=== PATIENT | female | born 1950 | race Two or more races ===

== ENCOUNTER 2017-09-03 11:30 | Outpatient (AMBR) | payer MEDICARE, MEDICAID, SELFPAY ==
--- NOTE | 2017-08-11 10:48 | PTNOTE_ITS ---
PT OP Initial Eval Patient Information Visit Reasons: right shoulder pain Medical Diagnosis: M25.511 M19.011 Treatment Dx #1: R shoulder pain Start of Care: 08/11/17 Date of Onset: 8 weeks ago Initial Assessment Subjective Pt is 67 yr old female who c/o R shoulder pain that started about 1 yr ago but worsened over the past 8 weeks. She reports pain with certain movements such as reaching behind her back. She points to the scapula as site of pain. She does HH chores with her hand below shoulder height to avoid pain. She is independent with all ADL's with occasional sharp pain if she moves wrong. She works seasonally [employer]. PLOF: pt had full use of shoulder with work and HH chore duties without pain. 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 negative TTP: moderate over UT, supraspinatus C/S screen: positive with R SB. Limited extension ROM Assessment Pt presents with decreased R shoulder AROM, pain with resisted supraspinatus resistance and TTP over that muscle consistent with shoulder RC impingement/ tendinopathy. Pt has decreased ROM with HBB and pain around scapula. Cervical screening is positive with pain referral from C/S to R shoulder with R sidebending. Cervical extension is very limited as well consistent with OA. Eval followed by HEP with materials. Short Term and Correction Goals 1. Ind with HEP 2. Improved AROM with HBB to L3 3. Increased strength to 4/5 in all planes of motion 4. Pt will reach OH to tall cabinets x10 Treatment Plan 90 day POC in order to complete visits. Pt requires skilled therapy in order to increase strength, decrease pain and address aforementioned impairments. Rx may consist of Therex, Manual therapy, Neuromuscular re-education, Modalities as indicated-moist heat packs, ice packs, mechanical traction, estim Frequency and Duration 2x a week for 6 weeks Certification Dates: 08/11/17 to 11/09/17 Office Procedures PT Outpatient G-Codes Date of Service PT Date of Service: 08/11/17 G-Codes Changing & Maintaining Body Post Body Position Current Status G-Code: G8981: CK 40-60% Body Position Goal Status G-Code: G8982: CJ 20-40% PT Procedures PT Date of Service: 08/11/17 OP PT Eval Mod Complex 30 minutes: Yes
--- NOTE | 2017-08-18 11:55 | PTNOTE_ITS ---
PT Outpatient Daily Note Date of Service: August 18, 2017 OP Daily Note Visit Reasons: right shoulder pain Outpatient Physical Therapy Treatment Date: 08/18/17 Subjective: About the same as time of eval Objective: See F/S for therex MT: STM to R UQ with Graston x10' Assessment: Good response to manual therapy to reduce UQ pain and improved AROM into FF. Pt has trigger point in levator scap that was less TTP after manual therapy. Plan: Continue per POC Length of Time (minutes) of Treatment: 30 Minutes Office Procedures PT Outpatient G-Codes Date of Service PT Date of Service: 08/11/17 G-Codes Changing & Maintaining Body Post Body Position Current Status G-Code: G8981: CK 40-60% Body Position Goal Status G-Code: G8982: CJ 20-40% PT Procedures PT Date of Service: 08/11/17 OP PT Eval Mod Complex 30 minutes: Yes PT Procedures PT Date of Service: 08/18/17 Therapeutic Exercise 15 minutes: Yes Manual Learning Design Specialist 15 minutes: Yes
--- NOTE | 2017-08-21 15:03 | PTNOTE_ITS ---
PT Outpatient Daily Note Date of Service: August 21, 2017 OP Daily Note Visit Reasons: right shoulder pain Outpatient Physical Therapy Treatment Date: 08/21/17 Subjective: pt felt a bit sore from last visit STM but also felt better of the R side neck. Objective: see flow sheet. Assessment: palpated pt's R side neck and did not have muscle tightness but had small trigger points around the scap. pt tolerated the STM but did have some discomfort followed by pressure relief. pt felt a lot more relaxed post STM. pt had fair ROM during pulleys. no compensation nor discomfort noted during and after finger ladder as pt was able to maintain good standing posture. Plan: continue POC per PT. Length of Time (minutes) of Treatment: 30 Minutes Office Procedures PT Outpatient G-Codes Date of Service PT Date of Service: 08/11/17 G-Codes Changing & Maintaining Body Post Body Position Current Status G-Code: G8981: CK 40-60% Body Position Goal Status G-Code: G8982: CJ 20-40% PT Procedures PT Date of Service: 08/11/17 OP PT Eval Mod Complex 30 minutes: Yes PT Procedures PT Date of Service: 08/21/17 Therapeutic Exercise 15 minutes: Yes Manual Digital Data Analyst 15 minutes: Yes PT Procedures PT Date of Service: 08/18/17 Therapeutic Exercise 15 minutes: Yes Manual Digital Data Analyst 15 minutes: Yes
--- NOTE | 2017-08-25 14:38 | PTNOTE_ITS ---
PT Outpatient Daily Note Date of Service: August 25, 2017 OP Daily Note Visit Reasons: right shoulder pain Outpatient Physical Therapy Treatment Date: 08/25/17 Subjective: Not a lot of pain in the R shoulder or neck today. Objective: R shoulder AROM: FF: 137 deg MT: STM to R UQ and C/S x10' with Graston Assessment: Myofascial tenderness of R UQ limits shoulder AROM and periscapular mm strength. Plan: Continue per POC Length of Time (minutes) of Treatment: 30 Minutes Office Procedures PT Outpatient G-Codes Date of Service PT Date of Service: 08/11/17 G-Codes Changing & Maintaining Body Post Body Position Current Status G-Code: G8981: CK 40-60% Body Position Goal Status G-Code: G8982: CJ 20-40% PT Procedures PT Date of Service: 08/11/17 OP PT Eval Mod Complex 30 minutes: Yes PT Procedures PT Date of Service: 08/21/17 Therapeutic Exercise 15 minutes: Yes Manual Internet Sales Associate 15 minutes: Yes PT Procedures PT Date of Service: 08/18/17 Therapeutic Exercise 15 minutes: Yes Manual Internet Sales Associate 15 minutes: Yes PT Procedures PT Date of Service: 08/25/17 Therapeutic Exercise 15 minutes: Yes Manual Internet Sales Associate 15 minutes: Yes
--- NOTE | 2017-08-28 12:25 | PT.ODAYNRPT ---
PT Outpatient Daily Note Date of Service: August 28, 2017 OP Daily Note Visit Reasons: right shoulder pain Outpatient Physical Therapy Treatment Date: 08/28/17 Subjective: Not a lot of pain in the R shoulder or neck today, just when she moves it a certain direction Objective: MT: STM to R UQ and C/S x10' with Graston Assessment: Forward shoulder posture may contribute to impingement pain in R UQ limits shoulder AROM and limiting periscapular mm strength. Plan: Continue per POC Length of Time (minutes) of Treatment: 30 Minutes Office Procedures PT Outpatient G-Codes Date of Service PT Date of Service: 08/11/17 G-Codes Changing & Maintaining Body Post Body Position Current Status G-Code: G8981: CK 40-60% Body Position Goal Status G-Code: G8982: CJ 20-40% PT Procedures PT Date of Service: 08/11/17 OP PT Eval Mod Complex 30 minutes: Yes PT Procedures PT Date of Service: 08/21/17 Therapeutic Exercise 15 minutes: Yes Manual Medical Device Sales Representative 15 minutes: Yes PT Procedures PT Date of Service: 08/28/17 Therapeutic Exercise 15 minutes: Yes Manual Medical Device Sales Representative 15 minutes: Yes PT Procedures PT Date of Service: 08/18/17 Therapeutic Exercise 15 minutes: Yes Manual Medical Device Sales Representative 15 minutes: Yes PT Procedures PT Date of Service: 08/25/17 Therapeutic Exercise 15 minutes: Yes Manual Medical Device Sales Representative 15 minutes: Yes
--- NOTE | 2017-09-01 11:58 | PTNOTE_ITS ---
PT Outpatient Daily Note Date of Service: September 01, 2017 OP Daily Note Visit Reasons: right shoulder pain Outpatient Physical Therapy Treatment Date: 09/01/17 Subjective: pt reported neck feeling a little better but still feels the tension on her R side. Objective: see flow sheet. Assessment: exercises first in which she does well with as indicated by no complaints. noted good ROM during ther ex. denies pain or discomfort with any of them. during STM palpated small frida on the R UT muscle and pt tolerated the pressure well. pt feels relaxed after with less tension. advised pt to continue HEP. Plan: continue POC per PT. Length of Time (minutes) of Treatment: 30 Minutes Office Procedures PT Outpatient G-Codes Date of Service PT Date of Service: 08/11/17 G-Codes Changing & Maintaining Body Post Body Position Current Status G-Code: G8981: CK 40-60% Body Position Goal Status G-Code: G8982: CJ 20-40% PT Procedures PT Date of Service: 08/11/17 OP PT Eval Mod Complex 30 minutes: Yes PT Procedures PT Date of Service: 08/21/17 Therapeutic Exercise 15 minutes: Yes Manual Food And Beverage Director 15 minutes: Yes PT Procedures PT Date of Service: 08/28/17 Therapeutic Exercise 15 minutes: Yes Manual Food And Beverage Director 15 minutes: Yes PT Procedures PT Date of Service: 09/01/17 Therapeutic Exercise 15 minutes: Yes Manual Food And Beverage Director 15 minutes: Yes PT Procedures PT Date of Service: 08/18/17 Therapeutic Exercise 15 minutes: Yes Manual Food And Beverage Director 15 minutes: Yes PT Procedures PT Date of Service: 08/25/17 Therapeutic Exercise 15 minutes: Yes Manual Food And Beverage Director 15 minutes: Yes
--- NOTE | 2017-09-03 12:08 | PT.ODAYNRPT ---
PT Outpatient Daily Note Date of Service: September 03, 2017 OP Daily Note Visit Reasons: right shoulder pain Outpatient Physical Therapy Treatment Date: 09/03/17 Subjective: Not a lot of pain in the R shoulder or neck today, just when she moves it a certain direction Objective: MT: STM to R UQ and C/S x5' with Graston Assessment: Forward shoulder posture may contribute to impingement pain in R UQ limits shoulder AROM and limiting periscapular mm strength. Good technique with chin retractions. Plan: Continue per POC Length of Time (minutes) of Treatment: 30 Minutes Office Procedures PT Outpatient G-Codes Date of Service PT Date of Service: 08/11/17 G-Codes Changing & Maintaining Body Post Body Position Current Status G-Code: G8981: CK 40-60% Body Position Goal Status G-Code: G8982: CJ 20-40% PT Procedures PT Date of Service: 08/11/17 OP PT Eval Mod Complex 30 minutes: Yes PT Procedures PT Date of Service: 08/21/17 Therapeutic Exercise 15 minutes: Yes Manual Polygraph Operator 15 minutes: Yes PT Procedures PT Date of Service: 08/28/17 Therapeutic Exercise 15 minutes: Yes Manual Polygraph Operator 15 minutes: Yes PT Procedures PT Date of Service: 09/01/17 Therapeutic Exercise 15 minutes: Yes Manual Polygraph Operator 15 minutes: Yes PT Procedures PT Date of Service: 08/18/17 Therapeutic Exercise 15 minutes: Yes Manual Polygraph Operator 15 minutes: Yes PT Procedures PT Date of Service: 08/25/17 Therapeutic Exercise 15 minutes: Yes Manual Polygraph Operator 15 minutes: Yes PT Procedures PT Date of Service: 09/03/17 Therapeutic Exercise 30 minutes: Yes
== END 2017-09-03 12:23 | disposition home or self-care (01) ==
PROVIDERS: PCP Physician Assistant; Referring Provider Physician Assistant; Visit Provider Family Medicine
DX: I10 Essential (primary) hypertension (principal)
CPT/HCPCS: 97110; 97140; 97162; G8981; G8982

== ENCOUNTER 2017-09-08 09:13 | Outpatient (AMBR) | payer MEDICARE, MEDICAID, SELFPAY ==
--- NOTE | 2017-09-08 19:42 | PT.ODS1RPT ---
PT OP Progress/Discharge Note Date of Service: September 08, 2017 Progress Note/DC Note Progress Note/Discharge Note: DC Note Patient Information Visit Reasons: shoulder pain Service Continue Service or Discharge: Discharge Discharge Date: 09/08/17 Status Subjective: The neck is much less tender and painful that when she started therapy Objective: Shoulder AROM: FF: 140 deg Abd: 140 deg HBB to L3 Strength: 4/5 in all planes of motion MT: STM to R UQ x10' with Graston Assessment: Pt has attended 8/12 visits and made good progress and met all goals establsihed at evaluation. She can reach OH x10 without pain and can reach behind her back to L3. She can has increased shoulder strength to 4/5 in all planes of motion. Plan: D/C with [facility] Office Procedures PT Outpatient G-Codes Date of Service PT Date of Service: 09/08/17 G-Codes Changing & Maintaining Body Post Body Position Goal Status G-Code: G8982: 20-40% Body Position Discharge Status G-Code: G8983: 20-40% PT Procedures PT Date of Service: 09/08/17 Therapeutic Exercise 15 minutes: Yes Manual [employer] Delivery Driver 15 minutes: Yes
--- NOTE | 2017-09-08 19:45 | PTNOTE_ITS ---
PT OP Progress/Discharge Note Date of Service: September 08, 2017 Progress Note/DC Note Progress Note/Discharge Note: DC Note Patient Information Visit Reasons: shoulder pain Service Continue Service or Discharge: Discharge Discharge Date: 09/08/17 Status Subjective: The neck is much less tender and painful that when she started therapy Objective: Shoulder AROM: FF: 140 deg Abd: 140 deg HBB to L3 Strength: 4/5 in all planes of motion MT: STM to R UQ x10' with Graston Assessment: Pt has attended 8/12 visits and made good progress and met all goals establsihed at evaluation. She can reach OH x10 without pain and can reach behind her back to L3. She can has increased shoulder strength to 4/5 in all planes of motion. Plan: D/C with [facility] Office Procedures PT Outpatient G-Codes Date of Service PT Date of Service: 09/08/17 G-Codes Changing & Maintaining Body Post Body Position Goal Status G-Code: G8982: 20-40% Body Position Discharge Status G-Code: G8983: 20-40% PT Procedures PT Date of Service: 09/08/17 Therapeutic Exercise 15 minutes: Yes Manual Tab Builder 15 minutes: Yes
== END 2017-10-07 23:59 | disposition home or self-care (01) ==
PROVIDERS: PCP Physician Assistant; Referring Provider Physician Assistant; Visit Provider Family Medicine
DX: I10 Essential (primary) hypertension (principal)
CPT/HCPCS: 97110; 97140; G8982; G8983

== ENCOUNTER 2024-03-31 06:45 | Day surgery (SDC) | payer OTHER, MEDICAID, SELFPAY ==
[2024-03-31] VITALS (9 sets, daily range): BP systolic 127–178; BP diastolic 67–118; PULSE 77–111; RESP 12–18; TEMP 36.5–37.2; O2SAT 93–99; BMI 36.1
[2024-03-31] MEDS: MIDAZOLAM INJ 1 MG/ML VIAL 2 ML (ASD USE ONLY) 2 MG IV (07:25)
[2024-03-31] MEDS: DiphenhydrAMINE INJ 50 MG/ML VIAL 25 MG IV (07:25)
[2024-03-31] MEDS: fentaNYL CIT INJ 50 mCg/ML AMP 2ML (ASD USE ONLY) IV (07:25)
--- NOTE | 2024-03-31 08:14 | SUR.PHASEII ---
0810 Pt more awake and alert. [facility] [place] [employer] group leader-pt denies pain or N/V. Abd remains soft. Chloe PO fluids.
--- NOTE | 2024-03-31 09:12 | SUR.PHASEII ---
0889 Pt assessment unchanged. No complaints. Amb with assist to bathroom. Family assisting pt with getting dressed. DC instructions given via assembler billiard table Emma. Both state understanding. Pt meets dc criteria-to home.
== END 2024-03-31 08:42 | disposition home or self-care (01) ==
PROVIDERS: PCP Family Medicine; Referring Provider Surgery; Visit Provider Surgery
PROC: 0DBE8ZX Excision of Large Intestine, Via Natural or Artificial Opening Endoscopic, Diagnostic (ICD-10-PCS; CPT 45380; principal; 2024-03-31 07:30)
DX: D12.5 Benign neoplasm of sigmoid colon (principal); K64.1 Second degree hemorrhoids; K57.31 Diverticulosis of large intestine without perforation or abscess with bleeding
CPT/HCPCS: 45385; J1200; J2250; J3010